=== PATIENT | female | born 1985 | race Caucasian/White ===

== ENCOUNTER 2016-07-31 07:55 | Observation (INO) | payer OTHER, SELFPAY ==
[~2016-07-31 07:55] MED LIST: PRENATAL1 TAB; TRIPLE ANTIBIOT TP
[2016-07-31] MEDS ORDERED: PRENATAL VITAM1 EA12 (08:52)
[2016-07-31] MEDS ORDERED: ZANTAC 7575 M1 PO (08:52)
[2016-07-31] MEDS ORDERED: TUMS200 MG PO (08:53)
[2016-07-31] MEDS ORDERED: MIRALAX17 G2 PO (08:53)
[2016-07-31] MEDS ORDERED: COLACE100 M1 PO (08:54)
== END 2016-07-31 09:05 ==
LOC: LDR 07:55
PROVIDERS: ADMIT Obstetrics & Gynecology
DX: Z03.71 Encounter for suspected problem with amniotic cavity and membrane ruled out (principal); Z3A.35 35 weeks gestation of pregnancy; Z79.899 Other long term (current) drug therapy; Z98.890 Other specified postprocedural states

== ENCOUNTER 2016-08-24 16:44 | Inpatient (IN) | payer OTHER, SELFPAY ==
[~2016-08-24 16:44] MED LIST changes: +COLACE100 M1 PO; +MIRALAX17 G2 PO; +PRENATAL VITAM1 EA12; +TUMS200 MG PO; +ZANTAC 7575 M1 PO
[2016-08-24 19:24] LABS: BASO % 0.2 % (0-2); EOS % 0.7 % (0-7); EOSINOPHIL ABSOLUTE COUNT 0.1 tho/cmm (0.0-0.7); HCT-HEMATOCRIT 42.4 % (34.0-49.0); HGB-HEMOGLOBIN 14.5 gm/dl (12.0-15.5); IMMATURE GRANULOCYTES ABSOLUTE 0.37 tho/cmm (0-0.03); IMMATURE GRANULOCYTES PERCENT 2.3 % (0-0.3); LYMPH % 12.4 % (20-45); MCH (MEAN CORPUSCULAR HGB) 32.8 pg (28.0-32.0); MCHC MEAN CORPUSCULAR HGB CONC 34.2 % (32.0-36.0); MCV (MEAN CELL VOLUME) 95.9 fl (82.0-96.0); MEAN PLATELET VOLUME 11.2 cmc (9.4-12.4); MONO % 10.1 % (0-12); MONOCYTE ABSOLUTE COUNT 1.6 tho/cmm (0.0-1.2); NEUTROPHILS % 74.3 % (40-80); PLATELET COUNT 220 tho/cmm (150-450); RED BLOOD COUNT 4.42 mil/cmm (4.00-5.20); RED CELL DISTRIBUTION WIDTH 13.7 % (12.4-16.4); WHITE BLOOD COUNT 16.1 tho/cmm (4.0-10.0)
[2016-08-25 11:40] LABS: BASO % 0.4 % (0-2); BASO ABSOLUTE COUNT 0.1 tho/cmm (0.0-0.2); EOS % 0.8 % (0-7); EOSINOPHIL ABSOLUTE COUNT 0.1 tho/cmm (0.0-0.7); HCT-HEMATOCRIT 40.3 % (34.0-49.0); HGB-HEMOGLOBIN 13.3 gm/dl (12.0-15.5); LYMPH ABSOLUTE COUNT 2.5 tho/cmm (0.8-4.5); MCH (MEAN CORPUSCULAR HGB) 31.9 pg (28.0-32.0); MCV (MEAN CELL VOLUME) 96.6 fl (82.0-96.0); MEAN PLATELET VOLUME 11.3 cmc (9.4-12.4); MONO % 11.9 % (0-12); NEUTROPHIL ABSOLUTE COUNT 12.1 tho/cmm (1.6-8.0); NEUTROPHIL-AUTOMATED 12.1 tho/cmm (1.6-8.0); NEUTROPHILS % 71.9 % (40-80); PLATELET COUNT 220 tho/cmm (150-450); RED BLOOD COUNT 4.17 mil/cmm (4.00-5.20); RED CELL DISTRIBUTION WIDTH 13.8 % (12.4-16.4); WHITE BLOOD COUNT 16.8 tho/cmm (4.0-10.0)
[2016-08-26] MEDS ORDERED: IBUPROFEN800 M1 PO (07:59)
[2016-08-26] MEDS ORDERED: NORCO 5-325 TA1 EACH PO (08:00)
== END 2016-08-26 10:30 | DRG 775 ==
LOC: LDR 16:44 → OBGE 08-25 00:49
PROVIDERS: ADMIT Advanced Practice Midwife
PROC: 10E0XZZ Delivery of Products of Conception, External Approach (ICD-10-PCS; principal; 2016-08-24)
DX: O99.344 Other mental disorders complicating childbirth (principal); F41.8 Other specified anxiety disorders; Z37.0 Single live birth; Z3A.39 39 weeks gestation of pregnancy
CPT/HCPCS: J2590